=== PATIENT | female | born 1995 | race Caucasian/White ===

== ENCOUNTER 2022-08-21 15:20 | Emergency (ER) | payer OTHER, SELFPAY ==
[2022-08-21 15:34] VITALS: BP 108/58; PULSE 89; RESP 16; TEMP 36.8; O2SAT 99; BMI 27.1
--- NOTE | 2022-08-21 16:54 | ED.HA ---
HPI - Headache <CLARA Mccarthy - Last Filed: 08/21/22 18:06> General Chief Complaint: Headache Stated Complaint: migraine headache for 15 days Time Seen by Provider: 08/21/22 15:43 Mode of arrival: Ambulatory History of Present Illness HPI Narrative: This is a 27-year-old female presents to the emergency department complaining of a migraine headache for the last 15 days without any relief from it. She denies history of migraines but states she has history of cervical diskectomy with a plate in her cervical spine. Patient states that she was doing squats with heavy weight 2 weeks ago, states that she had a left neck strain, states that she feels like her migraine has been persistent ever since and has not had any relief. 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 She denies any tenderness over her cervical spine, denies any weakness, urinary frequency or urgency, numbness or tingling, or other sensation. She is ambulatory, is tearful, states that she has seen urgent care who started treating her for shingles for concern about a pimple on her forehead. She states that fully resolved without having progression, states it was a pimple and not shingles. Patient then went to [facility] where she had head CT without contrast that did not show any intracranial bleed or acute abnormality. She thinks it is coming from her cervical spine with history of surgery and would like her cervical spine evaluated. Related Data Previous Rx's Medication Instructions Recorded ketorolac 10 mg tablet 10 mg PO Q8H PRN pain #14 tabs 08/21/22 methocarbamol 500 mg tablet 500 mg PO TID #20 tabs 08/21/22 Allergies Allergy/AdvReac Type Severity Reaction Status Date / Time diphenhydramine Allergy Verified 08/21/22 15:40 [From Wen] Review of Systems <CLARA Mccarthy - Last Filed: 08/21/22 18:06> Review of Systems ROS Unobtainable: All systems reviewed & are unremarkable except as noted in HPI and below Patient History <CLARA Mccarthy - Last Filed: 08/21/22 18:06> Social History Smoking Status: Current every day smoker Smoking Status: Current every day smoker alcohol intake frequency: holidays/special occasions only Substance Use Type: marijuana Exam <CLARA Mccarthy - Last Filed: 08/21/22 18:06> Narrative Exam Narrative: Reviewed vitals signs and nursing notes. General: cooperative, uncomfortable, in acute distress and is tearful, well groomed, afebrile HEENT: symmetrical facial expressions, moist mucous membranes, tenderness over her left trapezius, cervical paraspinal musculature, no mastoid tenderness, bilateral TMs without erythema. Suspect cervical muscle strain, no tenderness over cervical spine, range of motion is normal, patient able to shrug shoulders, equal bilaterally, without rash Cardiovascular: regular rate and rhythm, no peripheral edema, warm extremities MSK: moves all extremities, neurovascularly intact, no weakness, normal tone Skin: brisk capillary refill, without pallor or erythema Neuro: normal speech and cognition, A&O x3, ambulatory, clear speech Psych: mental status is grossly normal, congruent mood, normal affect, pleasant and cooperative Initial Vital Signs Initial Vital Signs: Vital Signs Temperature 98.2 F 08/21/22 15:34 Pulse Rate 89 08/21/22 15:34 Respiratory Rate 16 08/21/22 15:34 Blood Pressure 108/58 L 08/21/22 15:34 Pulse Oximetry 99 08/21/22 15:34 Oxygen Delivery Method 08/21/22 15:34 <Colton Ambrose DO - Last Filed: 08/21/22 19:24> Initial Vital Signs Initial Vital Signs: Vital Signs Temperature 98.2 F 08/21/22 15:34 Pulse Rate 89 08/21/22 15:34 Respiratory Rate 16 08/21/22 15:34 Blood Pressure 108/58 L 08/21/22 15:34 Pulse Oximetry 99 08/21/22 15:34 Oxygen Delivery Method 08/21/22 15:34 Course <CLARA Mccarthy - Last Filed: 08/21/22 18:06> Orders Ordered: ED Orders 08/21/22 17:01 CT cervical spine wo con Stat Discontinued Medications Acetaminophen (Acetaminophen 325 Mg Tablet) 975 mg PO NOW ONE Stop: 08/21/22 16:42 Last Admin: 08/21/22 17:27 Dose: 975 mg Documented By: KYM Dexamethasone (Dexamethasone 10 Mg/Ml Vial) 10 mg PO NOW ONE Stop: 08/21/22 16:42 Last Admin: 08/21/22 17:27 Dose: 10 mg Documented By: KYM Diazepam (Diazepam 5 Mg Tablet) 5 mg PO NOW ONE Stop: 08/21/22 16:44 Last Admin: 08/21/22 18:07 Dose: Not Given Documented By: IKER Hydroxyzine Pamoate (Hydroxyzine Pamoate 25 Mg Capsule) 25 mg PO NOW ONE Stop: 08/21/22 17:23 Last Admin: 08/21/22 17:33 Dose: 25 mg Documented By: KYM Ketorolac Tromethamine (Ketorolac 30 Mg/Ml Vial) 15 mg IM NOW ONE Stop: 08/21/22 16:42 Last Admin: 08/21/22 17:26 Dose: 15 mg Documented By: KYM Ondansetron HCl (Ondansetron 4 Mg Odt) 4 mg SL NOW ONE Stop: 08/21/22 16:43 Last Admin: 08/21/22 17:33 Dose: 4 mg Documented By: KYM Oxycodone HCl (Oxycodone Ir 5 Mg Tablet) 5 mg PO NOW ONE Stop: 08/21/22 17:22 Last Admin: 08/21/22 17:33 Dose: 5 mg Documented By: KYM Vital Signs Vital signs: Vital Signs - 8 hr 08/21/22 15:34 08/21/22 18:08 Temperature 98.2 F Pulse Rate 89 66 Respiratory Rate 16 18 Blood Pressure 108/58 L 106/78 Pulse Oximetry 99 99 Oxygen Delivery Method Room Air Room Air <Colton Ambrose DO - Last Filed: 08/21/22 19:24> Orders Ordered: ED Orders 08/21/22 17:01 CT cervical spine wo con Stat Discontinued Medications Acetaminophen (Acetaminophen 325 Mg Tablet) 975 mg PO NOW ONE Stop: 08/21/22 16:42 Last Admin: 08/21/22 17:27 Dose: 975 mg Documented By: KYM Dexamethasone (Dexamethasone 10 Mg/Ml Vial) 10 mg PO NOW ONE Stop: 08/21/22 16:42 Last Admin: 08/21/22 17:27 Dose: 10 mg Documented By: KYM Diazepam (Diazepam 5 Mg Tablet) 5 mg PO NOW ONE Stop: 08/21/22 16:44 Last Admin: 08/21/22 18:07 Dose: Not Given Documented By: IKER Hydroxyzine Pamoate (Hydroxyzine Pamoate 25 Mg Capsule) 25 mg PO NOW ONE Stop: 08/21/22 17:23 Last Admin: 08/21/22 17:33 Dose: 25 mg Documented By: KYM Ketorolac Tromethamine (Ketorolac 30 Mg/Ml Vial) 15 mg IM NOW ONE Stop: 08/21/22 16:42 Last Admin: 08/21/22 17:26 Dose: 15 mg Documented By: KYM Ondansetron HCl (Ondansetron 4 Mg Odt) 4 mg SL NOW ONE Stop: 08/21/22 16:43 Last Admin: 08/21/22 17:33 Dose: 4 mg Documented By: KYM Oxycodone HCl (Oxycodone Ir 5 Mg Tablet) 5 mg PO NOW ONE Stop: 08/21/22 17:22 Last Admin: 08/21/22 17:33 Dose: 5 mg Documented By: KYM Vital Signs Vital signs: Vital Signs - 8 hr 08/21/22 15:34 08/21/22 18:08 Temperature 98.2 F Pulse Rate 89 66 Respiratory Rate 16 18 Blood Pressure 108/58 L 106/78 Pulse Oximetry 99 99 Oxygen Delivery Method Room Air Room Air MDM - Headache <Juliane Thao [facility] - Last Filed: 08/21/22 18:06> Imaging Data CT - cervical spine: Radiologist's Impression: PROCEDURE:? CT CERVICAL SPINE WO CON ? INDICATIONS:? History cervical surgery w/pain after lifting heavy weight ? TECHNIQUE:? Noncontrast 3 mm thick sections acquired from the skull base to the T4 level.? Sagittal and coronal reformats were then constructed.? For radiation dose reduction, the following was used:? automated exposure control, adjustment of mA and/or kV according to patient size.? ? COMPARISON:? None. ? FINDINGS:? Postsurgical changes of C6-C7 disc replacement with normal appearance.? Normal alignment. ?Vertebral body heights maintained.? No fracture.? No significant degenerative changes identified.? Regional soft tissues normal. ? ? IMPRESSION:? Postsurgical changes of C6-C7 disc replacement with no significant abnormality demonstrated otherwise. ? ? Dictated by: Cristopher Rodriguez M.D. on 08/21/2022 at 17:53 ? ? Approved by: Cristopher Rodriguez M.D. on 08/21/2022 at 17:54 ? MDM Narrative Medical decision making narrative: This is a 27 year female presents to the emergency department for headache symptoms lasting last 15 days which she thinks started after exacerbating a chronic neck injury lifting heavy weight during squats 2 weeks ago. She is had left-sided neck cervical muscle strain with left trapezius tenderness and pain with all head movements. She has history of cervical spine diskectomy and vertebral fusion. CT C-spine does not show any acute changes., shows postsurgical changes of C6-7 distress placement without significant abnormality or abnormal soft tissue surrounding. Headache considerations include subarachnoid hemorrhage, but unlikely as patient denies sudden onset of pain, not worst of life, or neck pain. Meningitis considered, but thought unlikely given lack of neck pain, and without altered mental status or fever. Giant cell arteritis considered, but thought unlikely given lack of unilateral findings, pain in rastafari, or unilateral vision changes. Other diagnosis considered include infectious causes, spontaneous hemorrhage, vascular occlusion, vasculitis, or venous thrombosis. They are without any focal deficits to suggest this. Other serious diagnoses considered unlikely given lack of red flag findings such as sudden onset, increasing frequency, facial weakness, or other sensation change or weakness. They are not immunocompromised, or with active malignancy, anticoagulation, systemic signs of illness (fever, chills, stiff neck, or rash), focal neurologic findings, or recent trauma. This is most likely a cervical muscle strain, could be a migraine, dehydration, viral illness, or other muscle strain. There was no aura, and patient improved over their course in the ER. They were given strict return precautions for any altered mental status, fever, weakness, paresthesia, incontinence, or pain out of proportion to return to the emergency department for another evaluation. Discharge Plan Departure Patient Disposition: Home Clinical Impression: Headache Qualifiers: Headache type: unspecified Headache chronicity pattern: acute headache Intractability: intractable Qualified Code(s): R51.9 - Headache, unspecified Cervical muscle strain Qualifiers: Encounter type: initial encounter Qualified Code(s): S16.1XXA - Strain of muscle, fascia and tendon at neck level, initial encounter Instructions: DI for Neck Sprain, DI for Neck Pain Activity Restrictions/Additional Instructions: *You have been diagnosed with no acute changes to your cervical spine on CT imaging. This is most likely a cervical muscle strain, please use something topical, Toradol every 8 hours with Tylenol as needed for your pain, a muscle relaxer every 6-8 hours, avoid over stretching, over massage, or excessive exercise until this gets better. It should start getting better in 1-2 weeks. Please follow-up with your primary care provider if you have ongoing pain or symptoms related to this especially if you have numbness, tingling, or weakness. I hope you feel better soon. Please see your primary care provider for referral to physical therapy as this may be helpful. *What to do: *Please continue to take your regular medications as directed. [ x] New medication prescriptions sent to your pharmacy: [[facility]] [ ] New medication written as a paper prescription [ ] No new medications given *Please follow up with your primary care provider in 2-3 days, call for an appointment. Let them know you were seen in the Emergency Department and that we asked that you be seen for follow-up. We will electronically transmit a record of today's note if your PCP is in our system *If you do not have a primary care provider please contact [phone] to establish care with one of [facility] primary care providers. *Return to Emergency Department if you should have any new, worsening, or concerning symptoms, such as [fever greater than 101F, chills, worsening pain, persistent vomiting or other bothersome symptoms]. Prescriptions: New methocarbamol 500 mg tablet 500 mg PO TID Qty: 20 0RF ketorolac 10 mg tablet 10 mg PO Q8H PRN (Reason: pain) Qty: 14 0RF Visit Report Forms: Patient Portal/API <Colton Ambrose DO - Last Filed: 08/21/22 19:24> Cosign ED Attending Cossaidaature Attestation: I was immediately available in the department for consultation. This documentation has been reviewed and I agree with assessment and plan. Supervised by Colton Ambrose DO
--- NOTE | 2022-08-21 17:01 | DI.CT.S_ITS ---
PROCEDURE: CT CERVICAL SPINE WO CON INDICATIONS: History cervical surgery w/pain after lifting heavy weight TECHNIQUE: Noncontrast 3 mm thick sections acquired from the skull base to the T4 level. Sagittal and coronal reformats were then constructed. For radiation dose reduction, the following was used: automated exposure control, adjustment of mA and/or kV according to patient size. COMPARISON: None. FINDINGS: Postsurgical changes of C6-C7 disc replacement with normal appearance. Normal alignment. Vertebral body heights maintained. No fracture. No significant degenerative changes identified. Regional soft tissues normal. IMPRESSION: Postsurgical changes of C6-C7 disc replacement with no significant abnormality demonstrated otherwise. Dictated by: Cristopher Rodriguez M.D. on 08/21/2022 at 17:53 Approved by: Cristopher Rodriguez M.D. on 08/21/2022 at 17:54
[2022-08-21] MEDS: KETOROLAC 30 MG/ML VIAL 15 MG IM (17:26)
[2022-08-21] MEDS: ACETAMINOPHEN 325 MG TABLET 975 MG PO (17:27)
[2022-08-21] MEDS: DEXAMETHASONE 10 MG/ML VIAL PO (17:27)
[2022-08-21] MEDS: hydrOXYzine pamoate 25 MG CAPSULE PO (17:33)
[2022-08-21] MEDS: ONDANSETRON 4 MG ODT SL (17:33)
[2022-08-21] MEDS: OXYCODONE IR 5 MG TABLET PO (17:33)
[2022-08-21 18:08] VITALS: BP 106/78; PULSE 66; RESP 18; O2SAT 99
== END 2022-08-21 18:09 | disposition home or self-care (01) ==
PROVIDERS: Emergency Provider Nurse Practitioner Critical Care Medicine
DX: S16.1XXA Strain of muscle, fascia and tendon at neck level, initial encounter (principal); R51.9 Headache, unspecified; X50.0XXA Overexertion from strenuous movement or load, initial encounter
CPT/HCPCS: 72125; 96372; 99283; J1100; J1885